=== PATIENT | female | born 1995 | race Caucasian/White ===

== ENCOUNTER 2022-09-23 23:16 | Emergency (ER) | payer SELFPAY ==
[2022-09-23 23:41] VITALS: BP 122/86; PULSE 85; RESP 18; TEMP 99.3; BMI 29.2
== END 2022-09-24 00:06 | disposition home or self-care (01) ==
LOC: JER 23:16
DX: J06.9 Acute upper respiratory infection, unspecified (principal)
CPT/HCPCS: 0241U-QW; 99283-25